=== PATIENT | male | born 1940 | race Caucasian/White ===

== ENCOUNTER 2020-03-06 18:58 | Inpatient (IN) | payer MEDICARE, OTHER ==
[~2020-03-06] VITALS: Ht 177.8 cm; Wt 60.8 kg
--- NOTE | 2020-03-06 19:30 | NUR ---
Patient BIB health care social worker from [facility] ([facility]) to be medically cleared to be admitted to MHU. Patient upon arrival ambulatory with steady gait. A/Ox2. No distress noted.
[2020-03-06] MEDS ORDERED: LATA2.5D15 OP (19:41)
[2020-03-06] MEDS ORDERED: TAMS-3 PO (19:41)
[2020-03-06] MEDS ORDERED: MAGN400O6 PO (19:41)
[2020-03-06] MEDS ORDERED: ACET-2154 PO (19:41)
[2020-03-06] MEDS ORDERED: PRED-170 PO (19:41)
[2020-03-06] MEDS ORDERED: [UNRECOGNIZED DRUG - CODE] PO (19:41)
[2020-03-06] MEDS ORDERED: BISA10SU15 RC (19:41)
[2020-03-06] MEDS ORDERED: NA P133E RC (19:41)
[2020-03-06] MEDS ORDERED: MYCO250C PO (19:41)
[2020-03-06] MEDS ORDERED: RISP0.253 PO (19:41)
[2020-03-06] MEDS ORDERED: LOVA10TA PO (19:41)
[2020-03-06] MEDS ORDERED: DOCU250C14 PO (19:41)
[2020-03-06] MEDS ORDERED: TIMO1DRO OP (19:41)
[2020-03-06] MEDS ORDERED: GABA-534 PO (19:41)
[2020-03-06] MEDS ORDERED: ESCI-9 PO (19:41)
[2020-03-06] MEDS ORDERED: MYCO500T PO (19:41)
[2020-03-06] MEDS ORDERED: FINA5TAB11 PO (19:41)
[2020-03-06 20:07] LABS: BASOPHILS % (AUTO) 0.2 % (0.0-2.0); EOSINOPHILS % (AUTO) 0.1 % (0.0-7.0); HEMATOCRIT 39.3 % (36.7-47.1); HEMOGLOBIN 12.7 g/dL (12.5-16.3); LYMPHOCYTES # (AUTO) 1.4 K/uL (20.0-40.0); LYMPHOCYTES % (AUTO) 25.6 % (20.5-51.5); MEAN CORPUSCULAR HEMOGLOBIN 29.5 uug (23.8-33.4); MEAN CORPUSCULAR HGB CONC 32 g/dL (32.5-36.3); MEAN CORPUSCULAR VOLUME 91.1 fL (73.0-96.2); MONOCYTES # (AUTO) 0.4 K/uL (2.0-10.0); MONOCYTES % (AUTO) 7.9 % (0.0-11.0); NEUTROPHILS # (AUTO) 3.7 K/uL (1.8-8.9); NEUTROPHILS % (AUTO) 66.2 % (38.5-71.5); PLATELET COUNT (AUTO) 172 K/uL (152-348); RED BLOOD CELL COUNT(AUTO) 4.31 MIL/uL (4.06-5.63); WHITE BLOOD COUNT (AUTO) 5.6 K/uL (3.6-10.2)
[2020-03-06 20:12] LABS: CARBON DIOXIDE 30 mmol/L (21-32); CHLORIDE 102 mmol/L (98-107); CREATININE 0.9 mg/dL (0.6-1.3); GLUCOSE 118 mg/dL (74-106); POTASSIUM 4.3 mmol/L (3.5-5.1); UREA NITROGEN, BLOOD 19 mg/dL (7-18)
[2020-03-06 20:18] LABS: ALANINE AMINOTRANSFERASE 16 U/L (16-63); ALKALINE PHOSPHATASE 84 U/L (50-136); ASPARTATE AMINOTRANSFERASE 9 U/L (15-37); BILIRUBIN,DIRECT 0.2 mg/dL (0.0-0.2); BILIRUBIN,TOTAL 0.4 mg/dL (0.2-1.0); TOTAL PROTEIN, SERUM 6.8 g/dL (6.4-8.2)
[2020-03-06 20:21] LABS: ACETAMINOPHEN < 2.0 ug/mL (10-30); ETHANOL < 3 MG/DL (0-0)
--- NOTE | 2020-03-06 20:31 | NUR ---
Medically cleared by . Called Alee from PET TEAM to eval patient.
[2020-03-06 21:24] LABS: *BILIRUBIN,URIN NEGATIVE (NEGATIVE); *BLOOD, URINE NEGATIVE (NEGATIVE); *CLARITY,URINE CLEAR (CLEAR); *COLOR,URINE YELLOW (YELLOW); *KETONES,URINE NEGATIVE (NEGATIVE); *UROBILINOGEN,URINE 0.2 E.U./dl (NORMAL); LEUKOCYTE ESTERASE ,URINE NEGATIVE (NEGATIVE); NITRITE, URINE NEGATIVE (NEGATIVE); UGLUCOSE NEGATIVE (NEGATIVE)
--- NOTE | 2020-03-06 21:25 | NUR ---
Pinky from PET TEAM here to eval patient.
[2020-03-06 21:31] LABS: *AMPHETAMINE, URINE NEGATIVE (NEGATIVE); *CANNABINOID, URINE NEGATIVE (NEGATIVE); *COCCAINE, URINE NEGATIVE (NEGATIVE); *OPIATE, URINE NEGATIVE (NEGATIVE); *PHENCYCLIDINE SCREEN,URINE NEGATIVE (NEGATIVE)
--- NOTE | 2020-03-06 21:55 | NUR ---
TRansfered to MHU via wheelchair with no distress.
--- NOTE | 2020-03-06 22:00 | NUR ---
GPS/RN: Admit to MHU under Dr. Shepherd and [facility].
[2020-03-06] MEDS ORDERED: MAGNESIUM HYDROXIDE 30 ML LIQUID UDC PO PRN (22:15)
[2020-03-06] MEDS ORDERED: BLOOD SUGAR DIAGNOSTIC 1 EACH STRIP VI ONE (22:15)
[2020-03-06] MEDS ORDERED: MAG HYDROX/AL HYDROX/SIMETH 30 ML LIQUID UDC PO PRN (22:15)
[2020-03-06] MEDS ORDERED: ACETAMINOPHEN 325 MG TABLET PO PRN (22:15)
[2020-03-06] MEDS: TEMAZEPAM 7.5 MG CAPSULE PO PRN (22:45)
[2020-03-06] MEDS ORDERED: FLEET ENEMA 133 ML BOTTLE RC PRN (23:45)
[2020-03-06] MEDS ORDERED: BISACODYL 10 MG SUPP.RECT RC PRN (23:45)
--- NOTE | 2020-03-06 23:59 | NUR ---
GPS/RN: Admit 79yrs old male from [facility], Covid-19 neg today, accompanied by ER staff via W/C. Patient a/ox2 admitted on 515 for GD, under the care of Dr. Shepherd, with a Dx of Psychosis. Per admission report Pt had episodes of hallucination and delusional, seeing and hearing things at SNF. Upon assessment Pt denied reason why he is here, and denied SI/HI/, but noted confuse and disorganized and thought blocking behavior. Pt verbally responsive but forgetful and unable to cognitively discuss or make appropriate sense. Hx: Alzheimer's disease, unspecified Dementia and Psychosis, Kidney Transplant in 2019. Pt refused to answer basic question, only said he had not slept for days and need sleep aid. PRN was given with snacks. Skin assessed with no noted issue, Pt ambulatory but unstable gait, PT evaluation order. Patient Right handbook and Advisement given, right and unit rules explained but not understanding at this time, will need reenforcement. Q/15mins safety checks initiated and will monitor.
[2020-03-07 07:30] VITALS: BP 160/79
--- NOTE | 2020-03-07 07:30 | NUR ---
received patient Alert, disoriented , patient anxious , calm,compliant with medication, seen by Dr. gauthier on monitoring for safety
[2020-03-07] MEDS: predniSONE 5 MG TABLET PO SCH (08:37)
[2020-03-07] MEDS: DOCUSATE SODIUM 250 MG CAPSULE PO SCH ×2 (08:37→16:08)
[2020-03-07] MEDS: TIMOLOL MALEATE 0.25% OPHT DR 5 ML BOTTLE EACHEYE SCH (08:37)
[2020-03-07] MEDS: FINASTERIDE 5 MG TABLET PO SCH (08:37)
[2020-03-07] MEDS: MYCOPHENOLATE MOFETIL 250 MG CAPSULE PO SCH ×2 (08:37→16:08)
[2020-03-07] MEDS ORDERED: TAMSULOSIN HCL 0.4 MG CAP.SR.24H PO SCH (09:00)
[2020-03-07] MEDS ORDERED: TIMOLOL MALEATE 0.25% OPHT DR 5 ML BOTTLE OP SCH (09:00)
--- NOTE | 2020-03-07 10:38 | NUR ---
YARELI Initial Discharge Plan: Patient currently resides at [address] [address] ([phone]) and will be returning back upon discharge. YARELI spoke with Mena/daughter ([phone]) and Lacie/([phone]). YARELI will continue to work with patient, family, and MD to ensure a safe and proper discharge plan.
--- NOTE | 2020-03-07 10:39 | NUR ---
YARELI Family Contact: SW spoke with Mena/daughter ([phone]) and Lacie/([phone]) and discussed treatment and discharge plan.
--- NOTE | 2020-03-07 10:39 | NUR ---
YARELI Facility Contact: [place] [address] ([phone]) and will be returning back upon discharge. YARELI spoke with Marjan marketing services coordinator at the facility who confirmed patient is welcome back upon discharge.
--- NOTE | 2020-03-07 10:50 | NUR ---
Firearms Report: Bow String Maker completed and submitted a [employer] firearms report for 5150 grave disability certification. A copy of report has been placed in patient chart.
[2020-03-07] MEDS: SERTRALINE HCL 50 MG TABLET PO SCH (12:54)
[2020-03-07] MEDS: QUETIAPINE FUMARATE 25 MG TABLET PO SCH ×2 (16:08→20:14)
[2020-03-07 16:34] VITALS: BP 142/68
--- NOTE | 2020-03-07 17:42 | NUR ---
patient went to nursing station, and verbalizing of seeing things in his room, patient verbalizes of having visual hallucination, where in his seeing children toys in his room, patient was redirected, and oriented to reality , patient verbalizes that visual hallucination his experiencing making him having poor sleep, MD made aware of the patients behavior, patient was monitored [id number] for safety , no sign of distress at this time
[2020-03-07] MEDS: GABAPENTIN 300 MG CAPSULE PO SCH (20:14)
[2020-03-07] MEDS: TAMSULOSIN HCL 0.4 MG CAP.SR.24H PO SCH (20:14)
[2020-03-07 20:16] VITALS: BP 131/62
[2020-03-07] MEDS: LATANOPROST OPHT DROP 2.5 ML BOTTLE EACHEYE SCH (20:21)
[2020-03-07] MEDS ORDERED: LATANOPROST OPHT DROP 2.5 ML BOTTLE OP SCH (21:00)
--- NOTE | 2020-03-08 06:00 | NUR ---
Pt lying in bed and eyes close but respond when initiated conversation. Pt said he is fine and said he wants his medications at seven PM only but will accept it today. Pt is delusional and a little paranoid and commanding behavior. Will continue monitor and anticipate changes, Q/15mins head count done.
[2020-03-08 07:30] VITALS: BP 122/59
--- NOTE | 2020-03-08 07:30 | NUR ---
Received patient Alert, Disoriented with date and time, patient confused, needed heavy prompting and redirection, patient was able to redirect, compliant with his medication, patient denies VH at this time, patient assisted with ADL, took shower and shave, patient calm in his room, monitored for safety and fall risk, no sign of any distress at this time
[2020-03-08] MEDS: DOCUSATE SODIUM 250 MG CAPSULE PO SCH ×2 (08:07→16:02)
[2020-03-08] MEDS: predniSONE 5 MG TABLET PO SCH (08:08)
[2020-03-08] MEDS: TIMOLOL MALEATE 0.25% OPHT DR 5 ML BOTTLE EACHEYE SCH (08:08)
[2020-03-08] MEDS: MYCOPHENOLATE MOFETIL 250 MG CAPSULE PO SCH ×2 (08:08→16:02)
[2020-03-08] MEDS: FINASTERIDE 5 MG TABLET PO SCH (08:08)
[2020-03-08] MEDS: QUETIAPINE FUMARATE 25 MG TABLET PO SCH ×3 (08:08→20:03)
[2020-03-08] MEDS: LORAZEPAM 0.5 MG TABLET PO PRN ×3 (10:39→23:40)
[2020-03-08] MEDS: SERTRALINE HCL 50 MG TABLET PO SCH (12:27)
[2020-03-08 15:05] VITALS: BP 139/68
--- NOTE | 2020-03-08 18:05 | NUR ---
patient been calm, listening to music, patient had good appetite, patient has poor memory but was able to redirect, patient has been cooperative, having good conversation with staff, patient relaxing on a eun chair, able to verbalizes his needs, attended patients needs, monitored q15 for safety no sign of distress at this time
[2020-03-08 19:56] VITALS: BP 149/68
[2020-03-08] MEDS: GABAPENTIN 300 MG CAPSULE PO SCH (20:03)
[2020-03-08] MEDS: TAMSULOSIN HCL 0.4 MG CAP.SR.24H PO SCH (20:03)
[2020-03-08] MEDS: LATANOPROST OPHT DROP 2.5 ML BOTTLE EACHEYE SCH (20:04)
[2020-03-08] MEDS: TEMAZEPAM 7.5 MG CAPSULE PO PRN (21:09)
--- NOTE | 2020-03-08 22:05 | NUR ---
PRN Medication Response Note: Pt noted to wander the unit, go into other's rooms, and not listen to directions from staff. Restoril 7.5mg administered for insomnia and restlessness with minimal effect. Pt up out of bed several times since medication administration and remains restless. Will attempt other calming measures.
[2020-03-08] MEDS: QUETIAPINE FUMARATE 25 MG TABLET PO PRN (22:26)
--- NOTE | 2020-03-08 23:25 | NUR ---
PRN Medication Response Note: Pt remained restless and noted to respond to internal stimuli an experiencing visual hallucinations, thinking he sees men on a bridge. Prn Seroquel 25mg administered at 2226 with minimal effect. Pt continues to be restless, anxious, and delusional. Frequent redirection and reality reorientation provided.
--- NOTE | 2020-03-09 00:30 | NUR ---
PRN Medication Response Note: Ativan 0.5mg administered at 2340 with good effect. Pt finally became tired and able to sleep. Pt placed in bed with bed alarm on. Pt observed lying in bed with eyes closed, breathing even and unlabored. Will continue to monitor.
--- NOTE | 2020-03-09 06:34 | NUR ---
A+Ox1 to himself only. Pt is delusional, confused, disoriented, forgetful, and disorganized in thought process. Wanders the unit, requires frequent reality reorientation and reminders where he is and where his room is. Noted to be irritable, anxious, and restless. Pt observed by staff experiencing visual hallucinations-Pt thinks he sees men on a bridge, or children in a car, and is observed by staff speaking to and interacting with unseen others. Prn medication administered for psychosis, anxiety, and restlessness with delayed effect. Pt noted to ambulate with unsteady and weak gait, and refused to follow directions for his own safety. Pt placed in eun chair for his safety for approximately 2 hours before he was put into bed. Slept 6.45 hours. Denies pain, VS stable.
[2020-03-09 07:30] VITALS: BP 158/87
[2020-03-09] MEDS: FINASTERIDE 5 MG TABLET PO SCH (08:12)
[2020-03-09] MEDS: DOCUSATE SODIUM 250 MG CAPSULE PO SCH ×2 (08:12→16:27)
[2020-03-09] MEDS: QUETIAPINE FUMARATE 25 MG TABLET PO SCH ×3 (08:12→20:56)
[2020-03-09] MEDS: TIMOLOL MALEATE 0.25% OPHT DR 5 ML BOTTLE EACHEYE SCH (08:12)
[2020-03-09] MEDS: MYCOPHENOLATE MOFETIL 250 MG CAPSULE PO SCH ×2 (08:12→16:27)
[2020-03-09] MEDS: predniSONE 5 MG TABLET PO SCH (08:12)
[2020-03-09] MEDS: SERTRALINE HCL 50 MG TABLET PO SCH (12:50)
[2020-03-09 15:17] VITALS: BP 128/77
[2020-03-09] MEDS: LORAZEPAM 0.5 MG TABLET PO PRN (16:06)
[2020-03-09 20:09] VITALS: BP 108/66
[2020-03-09] MEDS: TAMSULOSIN HCL 0.4 MG CAP.SR.24H PO SCH (20:56)
[2020-03-09] MEDS: LATANOPROST OPHT DROP 2.5 ML BOTTLE EACHEYE SCH (20:56)
[2020-03-09] MEDS: GABAPENTIN 300 MG CAPSULE PO SCH (20:57)
[2020-03-09] MEDS: TEMAZEPAM 7.5 MG CAPSULE PO PRN (21:48)
--- NOTE | 2020-03-10 06:34 | NUR ---
Received Pt in the hallway sitting in a eun chair. A+O to himself only, no changes in behavior from previous shift, remains confused, disorganized, disoriented, forgetful and requires constant redirection and reorientation. Continues to be anxious and restless when awake. Restoril 7.5mg administered at 2148 with good effect. Pt able to fall asleep, and placed into bed by staff as his gait was unsteady and weak. VS stable, denies pain.
[2020-03-10 07:30] VITALS: BP 100/48
[2020-03-10] MEDS: QUETIAPINE FUMARATE 25 MG TABLET PO SCH ×3 (08:58→16:59)
[2020-03-10] MEDS: FINASTERIDE 5 MG TABLET PO SCH (08:58)
[2020-03-10] MEDS: MYCOPHENOLATE MOFETIL 250 MG CAPSULE PO SCH ×2 (08:58→16:59)
[2020-03-10] MEDS: DOCUSATE SODIUM 250 MG CAPSULE PO SCH ×2 (08:58→16:59)
[2020-03-10] MEDS: predniSONE 5 MG TABLET PO SCH (08:58)
[2020-03-10] MEDS: TIMOLOL MALEATE 0.25% OPHT DR 5 ML BOTTLE EACHEYE SCH (08:59)
[2020-03-10] MEDS: SERTRALINE HCL 50 MG TABLET PO SCH (12:52)
[2020-03-10] MEDS: TACROLIMUS ANHYDROUS 0.5 MG CAPSULE PO SCH (14:45)
[2020-03-10] MEDS: LORAZEPAM 0.5 MG TABLET PO PRN (19:43)
[2020-03-10] MEDS: GABAPENTIN 300 MG CAPSULE PO SCH (20:13)
[2020-03-10] MEDS: LATANOPROST OPHT DROP 2.5 ML BOTTLE EACHEYE SCH (20:13)
[2020-03-10] MEDS: TAMSULOSIN HCL 0.4 MG CAP.SR.24H PO SCH (20:14)
[2020-03-10] MEDS: ATORVASTATIN 10 MG TABLET PO SCH (20:17)
[2020-03-10] MEDS: QUETIAPINE FUMARATE 25 MG TABLET PO PRN (20:18)
[2020-03-10 20:46] VITALS: BP 148/76
[2020-03-10] MEDS ORDERED: QUETIAPINE FUMARATE 25 MG TABLET PO SCH (21:00)
[2020-03-10] MEDS: TEMAZEPAM 7.5 MG CAPSULE PO PRN (22:27)
[2020-03-11 07:30] VITALS: BP 141/58
[2020-03-11] MEDS: QUETIAPINE FUMARATE 25 MG TABLET PO SCH ×4 (08:21→20:43)
[2020-03-11] MEDS: DOCUSATE SODIUM 250 MG CAPSULE PO SCH ×2 (08:21→16:11)
[2020-03-11] MEDS: MYCOPHENOLATE MOFETIL 250 MG CAPSULE PO SCH ×2 (08:22→16:11)
[2020-03-11] MEDS: TIMOLOL MALEATE 0.25% OPHT DR 5 ML BOTTLE EACHEYE SCH (08:22)
[2020-03-11] MEDS: predniSONE 5 MG TABLET PO SCH (08:22)
[2020-03-11] MEDS: TACROLIMUS ANHYDROUS 0.5 MG CAPSULE PO SCH (08:23)
[2020-03-11] MEDS: FINASTERIDE 5 MG TABLET PO SCH (08:23)
[2020-03-11] MEDS: LORAZEPAM 0.5 MG TABLET PO PRN (15:04)
--- NOTE | 2020-03-11 15:30 | NUR ---
Probable Cause Hearing: Pts [id number] hold was upheld for grave disability. Certification was placed in the chart.
[2020-03-11 16:00] VITALS: BP 109/66
--- NOTE | 2020-03-11 16:19 | NUR ---
Family Contact: YARELI contacted the pts , Lacie ([phone]), and informed her that the pt does not have a discharge date at this time because the pt is not stable at this time. YARELI informed her that the pt was put in a gerichair due to being a fall risk and is confused. YARELI stated that she will keep her involved in the discharge planning.
[2020-03-11 20:24] VITALS: BP 122/72
[2020-03-11] MEDS: ATORVASTATIN 10 MG TABLET PO SCH (20:42)
[2020-03-11] MEDS: GABAPENTIN 300 MG CAPSULE PO SCH (20:43)
[2020-03-11] MEDS: TAMSULOSIN HCL 0.4 MG CAP.SR.24H PO SCH (20:43)
[2020-03-11] MEDS: LATANOPROST OPHT DROP 2.5 ML BOTTLE EACHEYE SCH (20:44)
[2020-03-11] MEDS: TEMAZEPAM 7.5 MG CAPSULE PO PRN (22:06)
--- NOTE | 2020-03-11 22:15 | NUR ---
Received patient in the hallway up in eun-chair.Alertx1.Confused,disorganized and disoriented.Re-oriented and redirected rendered.Continue with delusional/auditory hallucination.PAtient is adherent with medication.Patient noted to be anxious and restless.PRN meds given.Will continue to monitor
[2020-03-12] MEDS: LORAZEPAM 0.5 MG TABLET PO PRN (00:04)
--- NOTE | 2020-03-12 06:19 | NUR ---
Patient slept for about 4 hr & 45 minutes .Patient assisted to bathroom and placed back to bed.SAfety measures in place.
[2020-03-12 07:30] VITALS: BP 154/76
[2020-03-12] MEDS: QUETIAPINE FUMARATE 25 MG TABLET PO SCH ×4 (08:53→20:04)
[2020-03-12] MEDS: FINASTERIDE 5 MG TABLET PO SCH (08:53)
[2020-03-12] MEDS: TACROLIMUS ANHYDROUS 0.5 MG CAPSULE PO SCH (08:53)
[2020-03-12] MEDS: MYCOPHENOLATE MOFETIL 250 MG CAPSULE PO SCH ×2 (08:53→17:40)
[2020-03-12] MEDS: DOCUSATE SODIUM 250 MG CAPSULE PO SCH ×2 (08:53→17:40)
[2020-03-12] MEDS: predniSONE 5 MG TABLET PO SCH (08:54)
[2020-03-12] MEDS: TIMOLOL MALEATE 0.25% OPHT DR 5 ML BOTTLE EACHEYE SCH (08:55)
[2020-03-12 16:25] VITALS: BP 123/81
[2020-03-12 20:00] VITALS: BP 144/65
[2020-03-12] MEDS: GABAPENTIN 300 MG CAPSULE PO SCH (20:04)
[2020-03-12] MEDS: TAMSULOSIN HCL 0.4 MG CAP.SR.24H PO SCH (20:04)
[2020-03-12] MEDS: LATANOPROST OPHT DROP 2.5 ML BOTTLE EACHEYE SCH (20:04)
[2020-03-12] MEDS: ATORVASTATIN 10 MG TABLET PO SCH (20:05)
[2020-03-12] MEDS: TEMAZEPAM 7.5 MG CAPSULE PO PRN (21:49)
[2020-03-13 07:30] VITALS: BP 152/70
[2020-03-13] MEDS: MYCOPHENOLATE MOFETIL 250 MG CAPSULE PO SCH ×2 (09:23→17:26)
[2020-03-13] MEDS: FINASTERIDE 5 MG TABLET PO SCH (09:23)
[2020-03-13] MEDS: DOCUSATE SODIUM 250 MG CAPSULE PO SCH ×2 (09:23→17:26)
[2020-03-13] MEDS: QUETIAPINE FUMARATE 25 MG TABLET PO SCH ×4 (09:23→20:42)
[2020-03-13] MEDS: TACROLIMUS ANHYDROUS 0.5 MG CAPSULE PO SCH (09:23)
[2020-03-13] MEDS: predniSONE 5 MG TABLET PO SCH (09:24)
[2020-03-13] MEDS: TIMOLOL MALEATE 0.25% OPHT DR 5 ML BOTTLE EACHEYE SCH (09:24)
--- NOTE | 2020-03-13 14:33 | NUR ---
SNF Contact: YARELI called [facility] and spoke to Marjan who stated that the pt cannot be picked up tomorrow and that Tuesday would work better. She stated that the facility would also need updated notes so the SW faxed the notes to [phone].
[2020-03-13 16:42] VITALS: BP 156/70
[2020-03-13 20:00] VITALS: BP 143/79
[2020-03-13] MEDS: LATANOPROST OPHT DROP 2.5 ML BOTTLE EACHEYE SCH (20:42)
[2020-03-13] MEDS: ATORVASTATIN 10 MG TABLET PO SCH (20:42)
[2020-03-13] MEDS: GABAPENTIN 300 MG CAPSULE PO SCH (20:42)
[2020-03-13] MEDS: TAMSULOSIN HCL 0.4 MG CAP.SR.24H PO SCH (20:42)
--- NOTE | 2020-03-14 06:28 | NUR ---
GPS: Pt.slept for 7.15 last night. Showered earlier after some prompting. Less anxious,more re-directable but argumentative at times. Fall precautions observed. Will continue to monitor.
[2020-03-14 07:30] VITALS: BP 124/70
[2020-03-14] MEDS: predniSONE 5 MG TABLET PO SCH (08:42)
[2020-03-14] MEDS: QUETIAPINE FUMARATE 25 MG TABLET PO SCH ×4 (08:42→20:10)
[2020-03-14] MEDS: DOCUSATE SODIUM 250 MG CAPSULE PO SCH ×2 (08:42→17:49)
[2020-03-14] MEDS: TIMOLOL MALEATE 0.25% OPHT DR 5 ML BOTTLE EACHEYE SCH (08:42)
[2020-03-14] MEDS: FINASTERIDE 5 MG TABLET PO SCH (08:42)
[2020-03-14] MEDS: MYCOPHENOLATE MOFETIL 250 MG CAPSULE PO SCH ×2 (08:43→17:49)
[2020-03-14] MEDS: TACROLIMUS ANHYDROUS 0.5 MG CAPSULE PO SCH (08:44)
--- NOTE | 2020-03-14 11:48 | NUR ---
Family Contact: YARELI contacted the pts , Lacie ([phone]), and informed her that the pt has been showing a lot of improvement and that the pt is going to be discharged on Tuesday to [facility] on Tuesday. YARELI stated that the facility is going to seed cone picker the pt around 10:30am.
--- NOTE | 2020-03-14 12:05 | NUR ---
SNF Contact: YARELI called [facility] and spoke to Marjan who stated that the pt will be picked up on Tuesday at around 10:30am.
--- NOTE | 2020-03-14 12:06 | NUR ---
Gps/Mill Controller- Had been cooperative with staff, ambulated by staff with front wheel walker, CGA. instructed to slow down when walking tends to walk fast. Taken to the bathroom as needed. Interacting fairly well with staff., forgetful. Stayed up in his recliner chair by the Nurses station.Continued to show compliance with his routine medications.
[2020-03-14 16:33] VITALS: BP 117/64
[2020-03-14] MEDS: LORAZEPAM 0.5 MG TABLET PO PRN (18:43)
--- NOTE | 2020-03-14 18:52 | NUR ---
Gps/Fur Liner- Patient had been extremely anxious toward the afternoon, had been in and out of his recliner chair. , wants to keep walking , moving around with FWW, gait gets unsteady , constantly redirected. Patient was medicated with ativan 0.5 mg 1 tab .given po. Safety reviewed emphasized, forgetful .
[2020-03-14] MEDS: GABAPENTIN 300 MG CAPSULE PO SCH (20:10)
[2020-03-14] MEDS: TAMSULOSIN HCL 0.4 MG CAP.SR.24H PO SCH (20:10)
[2020-03-14 20:11] VITALS: BP 121/72
[2020-03-14] MEDS: ATORVASTATIN 10 MG TABLET PO SCH (20:11)
[2020-03-14] MEDS: LATANOPROST OPHT DROP 2.5 ML BOTTLE EACHEYE SCH (20:12)
[2020-03-15 07:30] VITALS: BP 103/61
[2020-03-15] MEDS: predniSONE 5 MG TABLET PO SCH (08:34)
[2020-03-15] MEDS: QUETIAPINE FUMARATE 25 MG TABLET PO SCH ×4 (08:34→20:06)
[2020-03-15] MEDS: DOCUSATE SODIUM 250 MG CAPSULE PO SCH ×2 (08:35→17:09)
[2020-03-15] MEDS: FINASTERIDE 5 MG TABLET PO SCH (08:35)
[2020-03-15] MEDS: TACROLIMUS ANHYDROUS 0.5 MG CAPSULE PO SCH (08:35)
[2020-03-15] MEDS: TIMOLOL MALEATE 0.25% OPHT DR 5 ML BOTTLE EACHEYE SCH (08:37)
[2020-03-15] MEDS: MYCOPHENOLATE MOFETIL 250 MG CAPSULE PO SCH ×2 (08:37→17:09)
[2020-03-15] MEDS: LORAZEPAM 0.5 MG TABLET PO PRN ×2 (12:16→17:52)
--- NOTE | 2020-03-15 14:21 | NUR ---
Gps/Global Commodity Manager- Ambulated to the bathroom, with fww, noted bladder incontinence x1, assisted with his hygiene, Stayed up in his recliner chair , by the Nurses station, safety reviewed , forgetful.
[2020-03-15 16:00] VITALS: BP 140/80
[2020-03-15 19:30] VITALS: BP 143/83
[2020-03-15] MEDS: GABAPENTIN 300 MG CAPSULE PO SCH (20:05)
[2020-03-15] MEDS: ATORVASTATIN 10 MG TABLET PO SCH (20:05)
[2020-03-15] MEDS: TAMSULOSIN HCL 0.4 MG CAP.SR.24H PO SCH (20:06)
[2020-03-15] MEDS: LATANOPROST OPHT DROP 2.5 ML BOTTLE EACHEYE SCH (20:06)
[2020-03-15] MEDS: TEMAZEPAM 7.5 MG CAPSULE PO PRN (20:36)
--- NOTE | 2020-03-16 01:24 | NUR ---
Received patient earlier sitting in the eun chair at the nurses station. Alert, but confused. Constant reorientation and redirection required. Assistance with ADLs and a snack provided. Medication given to help patient sleep. Patient is in bed at this time. Q15 min rounding done and bed alarm on to ensure safety. No acute issues noted.
--- NOTE | 2020-03-16 05:47 | NUR ---
Patient slept 8.00 hours so far. Up once during the night to use the bathroom. Patient back to bed and still asleep. No acute issues. Monitoring closely for safety.
[2020-03-16 07:51] VITALS: BP 108/51
[2020-03-16] MEDS: TIMOLOL MALEATE 0.25% OPHT DR 5 ML BOTTLE EACHEYE SCH (08:24)
[2020-03-16] MEDS: QUETIAPINE FUMARATE 25 MG TABLET PO SCH ×4 (08:24→20:38)
[2020-03-16] MEDS: TACROLIMUS ANHYDROUS 0.5 MG CAPSULE PO SCH (08:24)
[2020-03-16] MEDS: FINASTERIDE 5 MG TABLET PO SCH (08:25)
[2020-03-16] MEDS: predniSONE 5 MG TABLET PO SCH (08:25)
[2020-03-16] MEDS: MYCOPHENOLATE MOFETIL 250 MG CAPSULE PO SCH ×2 (08:25→16:03)
[2020-03-16] MEDS: DOCUSATE SODIUM 250 MG CAPSULE PO SCH ×2 (08:25→16:03)
--- NOTE | 2020-03-16 09:46 | NUR ---
Patient awake and alert this am. Up out of bed to chair. Patient aware of being discharged tomorrow. Covid swab done per order. Patient is in the day room interacting with peers. Continuing to monitor for safety and confusion and assist patient with ADLs and ambulation. No acute distress at this time.
[2020-03-16 15:59] VITALS: BP 137/81
[2020-03-16 20:11] VITALS: BP 140/84
[2020-03-16] MEDS: ATORVASTATIN 10 MG TABLET PO SCH (20:38)
[2020-03-16] MEDS: GABAPENTIN 300 MG CAPSULE PO SCH (20:38)
[2020-03-16] MEDS: TAMSULOSIN HCL 0.4 MG CAP.SR.24H PO SCH (20:38)
[2020-03-16] MEDS: LATANOPROST OPHT DROP 2.5 ML BOTTLE EACHEYE SCH (20:44)
--- NOTE | 2020-03-17 06:12 | NUR ---
GPS: Pt.now awake and in front of nurses station for safety. Slept 8.30 last night. Confused,forgetful and disorganized. Slightly anxious about his scheduled discharge later. Re-assured and re-directed frequently. Refused Ativan 0.5 mg PO for increased anxiety. Will continue to monitor.
[2020-03-17 07:44] VITALS: BP 146/77
[2020-03-17] MEDS: LORAZEPAM 0.5 MG TABLET PO PRN (08:06)
--- NOTE | 2020-03-17 08:16 | NUR ---
YARELI Discharge Note: Pt will be discharged to [facility]F located at [address] [place] [address]; . Pt will be picked up by the facility drivers around 10:30AM. YARELI contacted the pts , Lacie ([phone]), and informed her of the pts discharge on Tuesday and she agreed to the placement. Upon discharge, pt appears to be oriented x2. Patient presents with a dysphoric mood and congruent affect. Patient denies suicidal or homicidal ideation as well as auditory or visual hallucinations. Pt appears to be well groomed and appropriately dressed. Pt appears to be ambulatory with an unsteady gait. Pt will continue to be in the care of his tile erector, Dr. Major Garza, located at [address] [place] [id number]; . Pt will also remain in the care of his psychiatrist, [place], [place] [address] [place] [address]; . The Choice of Vendor and the multidisciplinary exit care form was done, printed, signed, and given to the patient.
[2020-03-17] MEDS: QUETIAPINE FUMARATE 25 MG TABLET PO SCH (08:37)
[2020-03-17] MEDS: TACROLIMUS ANHYDROUS 0.5 MG CAPSULE PO SCH (08:38)
[2020-03-17] MEDS: DOCUSATE SODIUM 250 MG CAPSULE PO SCH (08:38)
[2020-03-17] MEDS: TIMOLOL MALEATE 0.25% OPHT DR 5 ML BOTTLE EACHEYE SCH (08:38)
[2020-03-17] MEDS: MYCOPHENOLATE MOFETIL 250 MG CAPSULE PO SCH (08:38)
[2020-03-17] MEDS: predniSONE 5 MG TABLET PO SCH (08:38)
[2020-03-17] MEDS: FINASTERIDE 5 MG TABLET PO SCH (08:38)
--- NOTE | 2020-03-17 10:30 | NUR ---
GPS: Nursing Notes: Discharge Notes: Patient is awake and responding to his name, cooperative with nursing care, compliant with his medications, following staff directions, denies SI/HI, denies AH/VH, denies pain or discomfort, denies SOB. Patient discharge to [facility] at [address] [place] [address] , Patient's - Lacie informed of his discharge back to the facility by social service worker, report given to nurse - DELORES Manzo, took all his belongings with him, picked up by facility's transportation. Pt will continue to be in the care of his interactive multimedia designer, Dr. Major Garza, located at [address] [place] [id number]; . Pt will also remain in the care of his psychiatrist, Dr. Butt, [place] [address] [place] [address]; .
== END 2020-03-17 10:30 | DRG 885 ==
LOC: ER 18:58 → GPS 21:49
PROVIDERS: ADMIT Psychiatry & Neurology Psychosomatic Medicine; ATTEND Student in an Organized Health Care Education/Training Program
DX: F25.9 Schizoaffective disorder, unspecified (principal); F01.51 Vascular dementia, unspecified severity, with behavioral disturbance; F02.81 Dementia in other diseases classified elsewhere, unspecified severity, with behavioral disturbance; G30.9 Alzheimer's disease, unspecified; G31.83 Neurocognitive disorder with Lewy bodies; F10.11 Alcohol abuse, in remission; Z20.822 Contact with and (suspected) exposure to COVID-19; E78.5 Hyperlipidemia, unspecified; H40.9 Unspecified glaucoma; G62.9 Polyneuropathy, unspecified; N40.0 Benign prostatic hyperplasia without lower urinary tract symptoms; Z73.6 Limitation of activities due to disability; R53.1 Weakness; Z94.0 Kidney transplant status
CPT/HCPCS: 36415; 71045; 84443; 85025; 93005; A4663; G0480; J7507; J7512; J7517